=== PATIENT | female | born 1960 | race Caucasian/White ===

== ENCOUNTER 2018-08-10 11:54 | Inpatient (IN) ==
[2018-08-10] MEDS ORDERED: DULCOLAX PR PRN (14:14)
[2018-08-10] MEDS ORDERED: MOTRIN PO PRN (14:14)
[2018-08-10] MEDS ORDERED: IMODIUM PO PRN ×2 (14:14)
[2018-08-10] MEDS ORDERED: PHENOBARBITAL IV PRN (14:14)
[2018-08-10] MEDS ORDERED: DESYREL PO PRN (14:14)
[2018-08-10] MEDS ORDERED: SEROQUEL PO PRN (14:14)
[2018-08-10] MEDS ORDERED: TYLENOL PO PRN (14:14)
[2018-08-10] MEDS ORDERED: ZOFRAN ODT PO PRN (14:14)
[2018-08-10] MEDS ORDERED: D5W 1,000 ML IV PRN (14:14)
[2018-08-10] MEDS ORDERED: SENOKOT PO PRN (14:14)
[2018-08-10] MEDS ORDERED: NICOTINE GUM BUCCAL PRN (14:14)
[2018-08-10] MEDS ORDERED: ZOFRAN IV PRN (14:14)
[2018-08-10] MEDS ORDERED: ZOFRAN IM PRN (14:14)
[2018-08-10] MEDS ORDERED: MAALOX PLUS LIQUID PO PRN (14:14)
[2018-08-10 14:38] LABS: URINE SOURCE CLEAN CATCH
[2018-08-10 14:43] LABS: BILIRUBIN URINE NEGATIVE (NEGATIVE); BLOOD URINE NEGATIVE (NEGATIVE); CLARITY CLEAR (CLEAR); COLOR YELLOW; GLUCOSE URINE NEGATIVE (NEGATIVE); KETONE URINE NEGATIVE (NEGATIVE); LEUKOCYTES URINE NEGATIVE (NEGATIVE); NITRITE URINE NEGATIVE (NEGATIVE); PH URINE 6.5; PROTEIN URINE NEGATIVE (NEGATIVE); SP GRAVITY URINE 1.005; UROBILINOGEN URINE NORMAL
[2018-08-10 14:52] LABS: UR AMPHETAMINES QUAL NONE DETECTED (NONE DETECT); UR BARBITUATES QUAL NONE DETECTED (NONE DETECT); UR BENZODIAZEPIN QUAL NONE DETECTED (NONE DETECT); UR CANNABINOIDS QUAL NONE DETECTED (NONE DETECT); UR COCAINE QUAL NONE DETECTED (NONE DETECT); UR METHADONE QUAL NONE DETECTED (NONE DETECT); UR METHAMPHETAMINE QUAL NONE DETECTED (NONE DETECT); UR OPIATES QUAL NONE DETECTED (NONE DETECT); UR OXYCODONE QUAL PRESUMPTIVE POSITIVE (NONE DETECT); UR PCP QUAL NONE DETECTED (NONE DETECT); UR PROPOXYPHENE QUAL NONE DETECTED (NONE DETECT); UR TCA QUAL NONE DETECTED (NONE DETECT)
[2018-08-10 14:53] LABS: HEMATOCRIT 38.3 % (37.0-47.0); HEMOGLOBIN 12.6 g/dL (12.0-16.0); MCH 28.8 PG (27-31); MCHC 32.9 g/dL (33-37); MCV 87.6 FL (81-99); MPV 9.3 FL (7.4-10.4); RBC 4.37 XMIL (4.2-5.4); RDW 14.7 % (11.5-14.5); WBC 5.62 X1000 (4.8-10.8)
[2018-08-10] MEDS ORDERED: TUBERSOL ID ONE (15:00)
[2018-08-10] MEDS ORDERED: SALINE LOCK IV FLUID XX ONE (15:44)
[2018-08-10] MEDS ORDERED: BENTYL PO PRN (15:44)
[2018-08-10] MEDS ORDERED: M.V.I.-12 10 ML, FOLIC ACID 1 MG, MAGNESIUM SULFATE 1 GM, THIAMINE 100 MG in NS 1,000 ML IV ONE (17:00)
[2018-08-10] MEDS: LIBRIUM PO SCH ×2 (17:17→22:34)
[2018-08-10 18:16] LABS: AGAP 18; ALBUMIN 3.8 g/dL (3.5-5.0); ALKALINE PHOSPHATASE 77 U/L (32-104); AMYLASE 67 U/L (20-200); BUN 11 mg/dL (8-22); CALCIUM 8.3 mg/dL (8.8-10.2); CHLORIDE 102 mmol/L (98-107); COSMO 284; CREATININE 0.5 mg/dL (0.5-0.9); ESTIMATED GFR > 60; GLUCOSE 187 mg/dL (70-104); GOT 50 U/L (10-30); GPT 34 U/L (10-36); LIPASE 34 U/L (13-60); POTASSIUM 2.8 mmol/L (3.5-5.1); SODIUM 140 mmol/L (136-145); TCO2 20 mmol/L (25-35)
[2018-08-10] MEDS ORDERED: ATIVAN IV ONE (18:22)
[2018-08-10] MEDS: NICODERM PATCH TD PRN (18:55)
[2018-08-10] MEDS ORDERED: NS 1,000 ML IV ONE (22:19)
[2018-08-10] MEDS: POTASSIUM CHLORIDE 20 MEQ/SWI 20 MEQ/100 ML IVPB IV SCH (22:32)
[2018-08-11] MEDS: POTASSIUM CHLORIDE 20 MEQ/SWI 20 MEQ/100 ML IVPB IV SCH (00:30)
[2018-08-11] MEDS: LIBRIUM PO SCH ×4 (04:43→23:26)
[2018-08-11] MEDS: ROBAXIN PO PRN ×2 (04:43→20:39)
[2018-08-11] MEDS: PROTONIX PO SCH ×2 (04:43→06:07)
[2018-08-11 07:09] LABS: HEMATOCRIT 36.6 % (37.0-47.0); HEMOGLOBIN 11.7 g/dL (12.0-16.0); MCH 28.4 PG (27-31); MCV 88.8 FL (81-99); RBC 4.12 XMIL (4.2-5.4); RDW 14.5 % (11.5-14.5); WBC 3.64 X1000 (4.8-10.8)
[2018-08-11 07:30] LABS: AGAP 9; ALBUMIN 3.2 g/dL (3.5-5.0); ALKALINE PHOSPHATASE 73 U/L (32-104); BUN 9 mg/dL (8-22); CHLORIDE 110 mmol/L (98-107); COSMO 287; CREATININE 0.7 mg/dL (0.5-0.9); ESTIMATED GFR > 60; GLUCOSE 120 mg/dL (70-104); GOT 37 U/L (10-30); GPT 27 U/L (10-36); MAGNESIUM 1.8 mg/dL (1.5-2.7); POTASSIUM 3.3 mmol/L (3.5-5.1); SODIUM 144 mmol/L (136-145); TCO2 25 mmol/L (25-35); TOTAL PROTEIN 6.1 g/dL (6.3-8.3)
[2018-08-11] MEDS ORDERED: SPIRIVA INH SCH (09:00)
[2018-08-11] MEDS: COZAAR PO SCH (10:14)
[2018-08-11] MEDS: VITAMIN B-1 PO SCH (10:14)
[2018-08-11] MEDS: THERA M PLUS PO SCH (10:14)
[2018-08-11] MEDS: FOLIC ACID PO SCH (10:14)
[2018-08-11] MEDS: IMDUR PO SCH (10:16)
[2018-08-11] MEDS: NEURONTIN PO SCH ×3 (10:16→20:39)
[2018-08-11] MEDS: KLOR-CON PO SCH (10:16)
[2018-08-11] MEDS: COREG PO SCH ×2 (10:16→20:41)
[2018-08-11] MEDS: LASIX PO SCH (10:16)
[2018-08-11] MEDS: ASPIRIN PO SCH (10:16)
[2018-08-11] MEDS: PATIENT'S OWN MED INH SCH (10:45)
[2018-08-11] MEDS ORDERED: KLOR-CON PO ONE (17:33)
[2018-08-11] MEDS ORDERED: POTASSIUM CHLORIDE 20% LIQUID PO ONE (18:20)
[2018-08-11] MEDS: NICODERM PATCH TD PRN (20:39)
[2018-08-11] MEDS: ATARAX PO PRN (20:39)
[2018-08-11] MEDS: REQUIP PO SCH (20:40)
[2018-08-12] MEDS: PRILOSEC PO SCH (05:59)
[2018-08-12] MEDS: LIBRIUM PO SCH ×3 (05:59→17:47)
[2018-08-12] MEDS: SYNTHROID PO SCH (05:59)
[2018-08-12] MEDS ORDERED: PATIENT'S OWN MED INH SCH (07:30)
[2018-08-12] MEDS: PATIENT'S OWN MED INH SCH (07:49)
--- NOTE | 2018-08-12 08:15 | HISTORY AND PHYSICAL ---
CHIEF COMPLAINT: Nausea and vomiting. HISTORY OF PRESENT ILLNESS: The patient is a 57-year-old female who presented to [facility] secondary to nausea, vomiting and abdominal pain. Notes that she has been opiates for quite some time. When she stops, her withdrawal symptoms become too severe. SOCIAL HISTORY: Patient is legally . She is on disability. Lives at home in [place]. PAST MEDICAL HISTORY: COPD, hepatitis C, cirrhosis, known coronary artery disease status post 3 heart attacks in the past, chronic anxiety, depression, history of congestive heart failure, history of blackouts that was medication-related, recurrent pneumonia. MEDICATIONS: 1. Ibuprofen p.r.n. 2. Omeprazole 20. 3. Levothyroxine 25. 4. Spiriva daily. 5. Gabapentin 400 three times a day. 6. Baby aspirin. 7. Carvedilol 6.25 twice daily. 8. Ropinirole 0.5 at bedtime. 9. Imdur 60. 10. Trazodone 150. 11. Lasix 40. ALLERGIES: Penicillin, sulfa, Wellbutrin. REVIEW OF SYSTEMS: CINA score is elevated at 14 secondary to abdominal pain, frequent nausea, frequent episodes of diarrhea, sniffing, watery eyes, restlessness, tremors, skin crawling, history of blackouts that are medication-related. Denies any fevers, chills, dysuria, frequency, urgency, hesitancy, polyuria, polydipsia. Denies skin rashes, weight loss or weight gain. Has frequent episodes of diarrhea. Denies hematochezia or melena. SUBSTANCE ABUSE HISTORY: Patient was in treatment in 1979 for 29 days for alcohol. Started drinking at age 30. Currently drinks up to a 5th a day. Started marijuana at age 30, currently uses once a week or so. Started opiates at age 56 from [place] to OxyContin, currently taking at least 4 tabs daily. Started smoking at age 12, currently smokes pack a day. FAMILY HISTORY: Noncontributory. PHYSICAL EXAMINATION: VITAL SIGNS: Reviewed and stable. GENERAL: Patient is awake, alert. She is in no current respiratory distress although is somewhat ill-appearing due to her withdrawal symptoms. HEENT: Normocephalic, atraumatic. ULISES. NECK: Supple. No JVD. CARDIOVASCULAR: Regular rate. No murmurs. CHEST: Clear. No crackles, no wheezing. ABDOMEN: Soft, nondistended, nontender. EXTREMITIES: Moves all extremities. ASSESSMENT: 1. Nausea and vomiting. 2. Abdominal pain. 3. Myalgias. 4. Paresthesias. 5. Paroxysmal sweating. 6. Alcohol abuse withdrawal and stabilization. 7. Opiate abuse withdrawal and stabilization. 8. Known coronary artery disease. 9. Chronic obstructive pulmonary disease. 10. History of hepatitis C and cirrhosis. PLAN: We will continue patient in the hospital. Currently she is on high-dose Librium taper due to polysubstance use and abuse with alcohol and opiates. Discussed with her that going home without an MAT, naltrexone versus Suboxone, would not be in her best interest. Doubt that she will be successful without an MAT on board. We will admit her to the hospital, begin counseling and follow. cc: True Martin MD MTDD
[2018-08-12] MEDS: LASIX PO SCH (08:23)
[2018-08-12] MEDS: ASPIRIN PO SCH (08:23)
[2018-08-12] MEDS: THERA M PLUS PO SCH (08:23)
[2018-08-12] MEDS: NEURONTIN PO SCH ×3 (08:23→22:24)
[2018-08-12] MEDS: IMDUR PO SCH (08:23)
[2018-08-12] MEDS: COREG PO SCH ×2 (08:23→22:24)
[2018-08-12] MEDS: COZAAR PO SCH ×2 (08:23→08:25)
[2018-08-12] MEDS: KLOR-CON PO SCH (08:23)
[2018-08-12] MEDS: FOLIC ACID PO SCH (08:23)
[2018-08-12] MEDS: VITAMIN B-1 PO SCH (08:24)
[2018-08-12] MEDS: NICODERM PATCH TD PRN (10:54)
--- NOTE | 2018-08-12 17:44 | PROGRESS NOTE ---
DATE: 08/12/2018 SUBJECTIVE: The patient overall notes she still feels quite terrible. She is still having lots of muscle aches. Denies any fevers or chills currently. OBJECTIVE: HEENT: Normocephalic, atraumatic. ULISES. Neck: Supple. No JVD. Cardiovascular: Regular rate. No murmurs. Chest: Clear and unlabored. Abdomen: Soft, nondistended. ASSESSMENT: 1. Nausea/vomiting with abdominal pain. 2. Myalgias. 3. Paresthesias. 4. Paroxysmal sweating. 5. Alcohol abuse withdrawal and stabilization. 6. Opiate abuse withdrawal and stabilization. PLAN: We will continue patient in the hospital. We will continue to wean Librium as tolerated. We will give her 1 dose of Suboxone tonight and see how she does. cc: True Martin MD
[2018-08-12] MEDS ORDERED: SUBOXONE 2 MG/0.5 MG FILM SL ONE (21:00)
[2018-08-12] MEDS: REQUIP PO SCH (22:24)
[2018-08-13] MEDS: LIBRIUM PO SCH ×3 (01:44→10:01)
[2018-08-13] MEDS ORDERED: CATAPRES PO ONE (02:07)
[2018-08-13] MEDS: SYNTHROID PO SCH (06:01)
[2018-08-13] MEDS: PRILOSEC PO SCH (06:02)
[2018-08-13] MEDS: COZAAR PO SCH (08:14)
[2018-08-13] MEDS: IMDUR PO SCH (08:14)
[2018-08-13] MEDS: COREG PO SCH ×2 (08:14→21:31)
[2018-08-13] MEDS: THERA M PLUS PO SCH (08:14)
[2018-08-13] MEDS: VITAMIN B-1 PO SCH (08:14)
[2018-08-13] MEDS: ASPIRIN PO SCH (08:14)
[2018-08-13] MEDS: FOLIC ACID PO SCH (08:14)
[2018-08-13] MEDS: NEURONTIN PO SCH ×3 (08:14→21:30)
[2018-08-13] MEDS: LASIX PO SCH (08:14)
[2018-08-13] MEDS: KLOR-CON PO SCH (08:14)
[2018-08-13] MEDS: PATIENT'S OWN MED INH SCH (08:23)
[2018-08-13] MEDS: SUBOXONE 2 MG/0.5 MG FILM SL SCH ×2 (09:58→21:30)
[2018-08-13] MEDS: NICODERM PATCH TD PRN (16:20)
[2018-08-13] MEDS ORDERED: LIBRIUM PO PRN (17:25)
[2018-08-13] MEDS: ATARAX PO PRN (18:43)
[2018-08-13] MEDS: FISH OIL CONCENTRATE PO SCH (21:31)
[2018-08-13] MEDS: REQUIP PO SCH (21:31)
[2018-08-14] MEDS: PRILOSEC PO SCH (06:28)
[2018-08-14] MEDS: SYNTHROID PO SCH (06:28)
[2018-08-14] MEDS: COREG PO SCH (08:28)
[2018-08-14] MEDS: FISH OIL CONCENTRATE PO SCH (08:28)
[2018-08-14] MEDS: KLOR-CON PO SCH (08:28)
[2018-08-14] MEDS: VITAMIN B-1 PO SCH (08:28)
[2018-08-14] MEDS: THERA M PLUS PO SCH (08:28)
[2018-08-14] MEDS: IMDUR PO SCH (08:29)
[2018-08-14] MEDS: LASIX PO SCH (08:29)
[2018-08-14] MEDS: COZAAR PO SCH (08:29)
[2018-08-14] MEDS: SUBOXONE 2 MG/0.5 MG FILM SL SCH (08:29)
[2018-08-14] MEDS: NEURONTIN PO SCH (08:29)
[2018-08-14] MEDS: ASPIRIN PO SCH (08:29)
[2018-08-14] MEDS: FOLIC ACID PO SCH (08:29)
[2018-08-14] MEDS: PATIENT'S OWN MED INH SCH (08:40)
[2018-08-14] MEDS ORDERED: EFFEXOR XR PO SCH (09:00)
[2018-08-14 11:10] VITALS: BP 123/82
--- NOTE | 2018-08-14 11:21 | PROGRESS NOTE ---
DATE: 08/13/2018 SUBJECTIVE: Patient seen and examined by on the . She notes that the 2 mg Suboxone last night made her feel worlds better and she actually started to feel back alive and back to normal. PHYSICAL EXAMINATION: Vital Signs: Reviewed and stable. General: She is awake, alert, oriented. She is in no current distress. HEENT: Normocephalic. Neck: Supple. Cardiovascular: Regular rate. No murmurs. Chest: Clear, nonlabored. Abdomen: Soft, nondistended. Extremities: Moves all extremities. Neurologic: No focal changes. Skin: Warm and dry. No rashes. ASSESSMENT: 1. Nausea, vomiting, abdominal pain. 2. Myalgias. 3. Paresthesias. 4. Paroxysmal sweating. 5. Opiate abuse withdrawal and stabilization. PLAN: We will continue patient in the hospital. Continue to follow. We will attempt Suboxone 2 mg twice daily. If she tolerates, hopefully can discharge home in the a.m. cc: True Martin MD
--- NOTE | 2018-08-15 20:44 | DISCHARGE SUMMARY ---
ADMISSION DATE: 08/10/2018 DISCHARGE DATE: 08/14/2018 DISCHARGE DIAGNOSIS: 1. Nausea, vomiting. 2. Abdominal pain. 3. Myalgias. 4. Known coronary artery disease. 5. Chronic obstructive pulmonary disease stable without exacerbation. 6. Opiate abuse withdrawal and stabilization. CONSULTATIONS: None. PROCEDURES: None. BRIEF HOSPITAL COURSE: The patient is a 57-year-old female who presented to [facility] secondary to nausea, vomiting, abdominal pain. Notes that she has been using abusing opiates, she has been attempting to stop but withdrawal symptoms become too severe. She has also been drinking a 5th a day. Given her alcoholism we admitted her initially on high- dose Librium taper continue counseling each day, as we taper down Librium she did well and had no acute alcohol withdrawal symptoms although her opiate withdrawal symptoms did seem to increase as we weaned down Librium. Patient was still highly concerned about going home she would start using, abusing again. She therefore was started on a very low dose of Suboxone at 2 mg a day and noted that she felt better than she has in quite some time and actually felt "alive." She was slowly increased to 2 mg twice daily and that is what she was discharged home on as she was feeling much better. DISPOSITION: Patient will be discharged home, will continue 2 mg Suboxone twice daily. She will follow up outpatient with treatment facility of choice. Greater than 30 minutes was spent in total care. She thankfully has totally weaned off Librium during the hospital. Discussed with patient how to wean down Librium if or when she is ready. Greater than 30 minutes was spent in total care. She will be discharged home. Discussed her that she needs to avoid all persons, places, situations which she has been using and abusing in the past. She needs outpatient life counseling as well as drug counseling. Patient voiced understanding and therefore will be discharged home. cc: True Martin MD
== END 2018-08-14 14:00 | disposition home or self-care (01) | DRG 897 ==
LOC: P.DIRADM 12:57 → P.MEDSURG 13:14
PROVIDERS: ADMIT Family Medicine; ATTEND Family Medicine
CPT/HCPCS: 80053; 80104; 80301; 80305; 80307; 80320; 82055; 82150; 82948; 83690; 83735; 84703; 85027; 94640; 94761; A9270; G0431; G0434; G0477; G0480; G6040; J2060; J3411; J3475; J3480; J7030; XXXXX